=== PATIENT | female | born 1955 | race Caucasian/White ===

== ENCOUNTER 2017-12-05 18:27 | Emergency (ER) | payer MEDICARE ==
[2017-12-05 18:53] VITALS: O2SAT 98
[2017-12-05] MEDS ORDERED: DUONEB 0.5-3 MG/3 ml Neb IH ONE ×2 (19:19→19:26)
[2017-12-05] MEDS ORDERED: DELTASONE 20 MG PO ONE (19:20)
[2017-12-05] MEDS ORDERED: DELTASONE 20 MG ONE (19:25)
[2017-12-05] MEDS ORDERED: Zithromax 250 MG TABLET PO ONE (19:28)
[2017-12-05 19:33] VITALS: BP 125/46; PULSE 78
--- NOTE | 2017-12-05 19:42 | ERPHSYRPT ---
- History of Present Illness Time Seen by Provider: 12/05/17 19:01 Source: patient Exam Limitations: no limitations Patient Subjective Stated Complaint: c/o cough x 8 weeks. Had recent dx of flu and cough since. no fevers per patient. Triage Nursing Assessment: lungs CTA bilat, no congestion, dry cough, no fevers Physician History: 62 y/o female with history of COPD comes to the ER with complaints of cough, congestion, wheezing and shortness of breath for the past 6 weeks. Pt has not used any medications over the counter. No fever, chills, chest pain, sinus congestion, sore throat or muscle aches. Pt believes that she initially had the flu a few weeks ago. Timing/Duration: week(s) Cough Quality/Degree: moderate Possible Cause: no prior episodes Modifying Factors: Improves With: nothing Associated Symptoms: shortness of breath, No fever, No chills International travel in last 2 weeks: No Allergies/Adverse Reactions: No Known Drug Allergies Allergy (Unverified 12/05/17 18:53) Home Medications: Levothyroxine Sodium 100 Mcg [Synthroid 100 Mcg] 1 tab PO DAILY 12/05/17 [ History] Hx Tetanus, Diphtheria Vaccination/Date Given: Yes Hx Influenza Vaccination/Date Given: (dx flu about 8 weeks ago) Immunizations Up to Date: Yes - Review of Systems Constitutional: No Fever, No Chills Eyes: No Symptoms Ears, Nose, & Throat: No Symptoms Respiratory: Cough, Dyspnea, Dyspnea on Exertion (BLACK), Wheezing Cardiac: No Chest Pain, No Edema, No Syncope Abdominal/Gastrointestinal: No Abdominal Pain, No Nausea, No Vomiting, No Diarrhea Genitourinary Symptoms: No Dysuria Musculoskeletal: No Back Pain, No Neck Pain Skin: No Rash Neurological: No Dizziness, No Focal Weakness, No Sensory Changes Psychological: No Symptoms Endocrine: No Symptoms All Other Systems: Reviewed and Negative - Past Medical History Neurological History: No Pertinent History ENT History: No Pertinent History Cardiac History: No Pertinent History Respiratory History: COPD Endocrine Medical History: Hypothyroidism Musculoskeletal History: No Pertinent History GI Medical History: No Pertinent History History: No Pertinent History Psycho-Social History: Depression Female Reproductive Disorders: No Pertinent History - Past Surgical History Past Surgical History: No Neuro Surgical History: No Pertinent History Cardiac: No Pertinent History Respiratory: No Pertinent History Gastrointestinal: No Pertinent History Genitourinary: No Pertinent History Musculoskeletal: No Pertinent History Female Surgical History: No Pertinent History - Social History Smoking Status: Current every day smoker Drug Use: none - Female History Hx Last Menstrual Period: postmenopausal Hx Now: No - Nursing Vital Signs Nursing Vital Signs: Initial Vital Signs Temperature 97.6 F 12/05/17 18:46 Pulse Rate 84 12/05/17 18:46 Respiratory Rate 20 12/05/17 18:46 Blood Pressure 138/68 12/05/17 18:46 O2 Sat by Pulse Oximetry 98 12/05/17 18:46 Pain Scale Pain Intensity 0 - Physical Exam General Appearance: no apparent distress, alert Eye Exam: PERRL/EOMI, eyes nml inspection Ears, Nose, Throat Exam: normal ENT inspection, TMs normal, pharynx normal, moist mucous membranes Neck Exam: normal inspection, non-tender, supple, full range of motion Respiratory Exam: wheezing, No chest tenderness, No respiratory distress Cardiovascular Exam: regular rate/rhythm, normal heart sounds Gastrointestinal/Abdomen Exam: soft, No tenderness Back Exam: normal inspection, No CVA tenderness, No vertebral tenderness Extremity Exam: normal inspection, normal range of motion Neurologic Exam: alert, oriented x 3, cooperative, normal mood/affect, sensation nml, No motor deficits Skin Exam: normal color, warm, dry, No rash Lymphatic Exam: No adenopathy SpO2: 98 Oxygen Delivery: Room Air - Course Nursing assessment & vital signs reviewed: Yes Ordered Tests: Active Orders 24 hr Category Date Time Status CHEST 2 VIEWS (PA AND LAT) Stat Exams 12/05/17 18:55 Taken Respiratory Nebulizer STAT RT 12/05/17 19:20 Completed Medication Summary Discontinued Medications Generic Name Dose Route Start Last Admin Trade Name Bartq PRN Reason Stop Dose Admin Albuterol/Ipratropium 3 ml 12/05/17 19:19 12/05/17 19:44 Duoneb 0.5-3 Mg/3 Ml Neb IH 12/05/17 19:20 3 ml STAT ONE Administration Albuterol/Ipratropium Confirm 12/05/17 19:26 Duoneb 0.5-3 Mg/3 Ml Neb Administered 12/05/17 19:27 Dose 3 ml IH .STK-MED ONE Azithromycin 500 mg 12/05/17 19:28 Zithromax 250 Mg Tablet PO 12/05/17 19:29 STAT ONE Prednisone 40 mg 12/05/17 19:20 12/05/17 19:26 Deltasone 20 Mg PO 12/05/17 19:21 40 mg STAT ONE Administration Prednisone Confirm 12/05/17 19:25 Deltasone 20 Mg Administered 12/05/17 19:26 Dose 40 mg .ROUTE .STK-MED ONE - Progress Progress: improved Air Movement: good Progress Note: 12/05/17 19:53 The patient feels better after receiving duoneb, prednisone and azithromycin. The CXR is within normal limits. The patient will be d/c home on azithromycin, ventolin, prednisone and tessalon perles for bronchitis. - Departure Time of Disposition: 19:54 Departure Disposition: Home Clinical Impression: Bronchitis Condition: Stable Critical Care Time: No Referrals: SERGE KAUFMAN [Primary Care Provider] - Instructions: Acute Bronchitis Additional Instructions: Return to the ER if you should have worsening cough, congestion, wheezing, shortness of breath, fever or chills. Finish the antibiotics until completion. Prescriptions: Albuterol Sulfate [Ventolin Hfa] 8 gm IH QID PRN #1 [id number] PRN Reason: Shortness Of Breath/Wheezing Azithromycin 250 mg [Zithromax 250 MG TABLET] 250 mg PO DAILY #4 tablet Benzonatate [Tessalon Perle] 100 mg PO QID PRN #20 capsule PRN Reason: Cough Prednisone 20 mg [Deltasone 20 mg] 20 mg PO DAILY #7 tablet
[2017-12-05] MEDS ORDERED: Zithromax 250 MG TABLET ONE (20:06)
--- NOTE | 2017-12-06 08:32 | XRAY ---
Indication: Cough. COPD. Comparison: None PA/lateral chest hyperinflated and clear. Heart and mediastinal structures within normal limits. Bony thorax intact with mild degenerative changes. Impression: Nonacute hyperinflated chest.
== END 2017-12-05 20:14 | disposition home or self-care (01) ==
LOC: ED 18:27
DX: J40 Bronchitis, not specified as acute or chronic (principal); Z87.09 Personal history of other diseases of the respiratory system
CPT/HCPCS: 71046; 94640; 99283; A9270-GY

== ENCOUNTER 2018-01-12 15:36 | Emergency (ER) | payer MEDICARE ==
[2018-01-12 15:47] VITALS: BP 151/99; PULSE 83; O2SAT 96
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
== END 2018-01-12 16:03 | disposition home or self-care (01) ==
LOC: ED 15:36
DX: M62.830 Muscle spasm of back (principal); X50.0XXA Overexertion from strenuous movement or load, initial encounter; Y93.89 Activity, other specified; J44.9 Chronic obstructive pulmonary disease, unspecified; E03.9 Hypothyroidism, unspecified; F32.9 Major depressive disorder, single episode, unspecified; F17.200 Nicotine dependence, unspecified, uncomplicated; Z79.899 Other long term (current) drug therapy
CPT/HCPCS: 99281; 99282

== ENCOUNTER 2018-09-08 04:23 | Emergency (ER) | payer MEDICARE ==
[2018-09-08 04:34] VITALS: O2SAT 99
--- NOTE | 2018-09-08 04:53 | ERPHSYRPT ---
- History of Present Illness Time Seen by Provider: 09/08/18 04:48 Source: patient Exam Limitations: no limitations Patient Subjective Stated Complaint: Ear pain to right ear. Triage Nursing Assessment: Patient ambulated back to ED and transferred self to bed. Patient A+O x 3. Patient complains of right ear pain for 4 days. This nurse was uanble to assess ear due to patient in so much pain. Patient states she went to urgent care on Sunday because she couldn't hear out of [place] ear. Patient stated her ears were flushed and she has had had trouble and pain since. Pain 06/21 to right ear. Physician History: Ear pain to right ear.for 3 days Timing/Duration: gradual onset Severity: moderate ENT Location: ear (R) Associated Symptoms: denies symptoms Allergies/Adverse Reactions: No Known Drug Allergies Allergy (Verified 09/08/18 04:34) Home Medications: Levothyroxine Sodium 100 Mcg [Synthroid 100 Mcg] 1 tab PO DAILY 12/05/17 [ History] Hx Tetanus, Diphtheria Vaccination/Date Given: Yes Hx Influenza Vaccination/Date Given: No Hx Pneumococcal Vaccination/Date Given: No Immunizations Up to Date: Yes - Review of Systems Constitutional: No Symptoms Eyes: No Symptoms Ears, Nose, & Throat: Ear Pain Respiratory: No Symptoms Cardiac: No Symptoms Abdominal/Gastrointestinal: No Symptoms Genitourinary Symptoms: No Symptoms Musculoskeletal: No Symptoms - Past Medical History Neurological History: No Pertinent History ENT History: No Pertinent History Cardiac History: No Pertinent History Respiratory History: COPD Endocrine Medical History: Hypothyroidism Musculoskeletal History: No Pertinent History GI Medical History: No Pertinent History History: No Pertinent History Psycho-Social History: Depression Female Reproductive Disorders: No Pertinent History - Past Surgical History Past Surgical History: Yes Neuro Surgical History: No Pertinent History Cardiac: No Pertinent History Respiratory: No Pertinent History Gastrointestinal: No Pertinent History Genitourinary: No Pertinent History Musculoskeletal: Orthopedic Surgery Female Surgical History: No Pertinent History Other Surgical History: foot surgery - Social History Smoking Status: Current every day smoker How long have you smoked: 45 years Exposure to second hand smoke: Yes Drug Use: none Patient Lives Alone: No - Female History Hx Last Menstrual Period: Menopausal Hx Now: No - Nursing Vital Signs Nursing Vital Signs: Initial Vital Signs Temperature 97.6 F 09/08/18 04:27 Pulse Rate 77 09/08/18 04:27 Respiratory Rate 18 09/08/18 04:27 Blood Pressure 150/86 09/08/18 04:27 O2 Sat by Pulse Oximetry 99 09/08/18 04:27 Pain Scale Pain Intensity 8 - Physical Exam General Appearance: no apparent distress Eye Exam: bilateral eye: normal inspection Ear Exam: right ear: erythema, swelling, tenderness, TM dull Nasal Exam: normal inspection Throat Exam: normal Neck Exam: normal inspection Cardiovascular/Respiratory Exam: chest non-tender SpO2: 99 Oxygen Delivery: Room Air - Course Nursing assessment & vital signs reviewed: Yes - Progress Progress: unchanged Counseled pt/family regarding: diagnosis, need for follow-up - Departure Time of Disposition: 04:52 Departure Disposition: Home Clinical Impression: Otitis externa Qualifiers: Otitis externa type: unspecified type Chronicity: acute Laterality: right Qualified Code(s): H60.501 - Unspecified acute noninfective otitis externa, right ear Otitis media Qualifiers: Otitis media type: suppurative Chronicity: acute Laterality: right Recurrence: not specified as recurrent Spontaneous tympanic membrane rupture: without spontaneous rupture Qualified Code(s): H66.001 - Acute suppurative otitis media without spontaneous rupture of ear drum, right ear Condition: Stable Critical Care Time: No Referrals: SERGE KAUFMAN [Primary Care Provider] - Instructions: Ear Infections (Otitis Media) (DC) Additional Instructions: EARACHE 1. If antibiotics are prescribed, take them as directed until gone. 2. Decongestants may be useful. 3. Avoid inserting objects into the ear, such as Q-tips. 4. Acetaminophen or Ibuprofen as directed may help reduce any temperature and help with any associated pain. 5. Contact your child's family physician if there is no improvement in the child's condition within 48 hours. Prescriptions: Amoxicillin 500 mg Cap [Amoxil 500 mg] 500 mg PO TID #30 capsule
[2018-09-08] MEDS ORDERED: CORTISPORIN EAR DROPS 10 ML SUSPENSION OT ONE (05:19)
[2018-09-08 05:31] VITALS: BP 121/80; PULSE 64
[2018-09-08] MEDS ORDERED: CORTISPORIN EAR DROPS 10 ML SUSPENSION OT SCH (10:00)
== END 2018-09-08 05:34 | disposition home or self-care (01) ==
LOC: ED 04:23
DX: H60.501 Unspecified acute noninfective otitis externa, right ear (principal); H66.001 Acute suppurative otitis media without spontaneous rupture of ear drum, right ear; E03.9 Hypothyroidism, unspecified; Z79.899 Other long term (current) drug therapy
CPT/HCPCS: 99283; A9270-GY

== ENCOUNTER 2018-11-10 04:11 | Inpatient (IN) | payer MEDICARE ==
[2018-11-10] MEDS ORDERED: DUONEB 0.5-3 MG/3 ml Neb IH ONE ×3 (04:36→04:48)
[2018-11-10] MEDS ORDERED: Sodium Chloride 0.9% 1000 ML 1,000 ML IV STA ×2 (04:48→06:25)
[2018-11-10] MEDS ORDERED: solu-MEDROL 125 MG IV ONE (04:48)
--- NOTE | 2018-11-10 04:48 | ERPHSYRPT ---
- History of Present Illness Source: patient, family Exam Limitations: clinical condition Patient Subjective Stated Complaint: pt is alert and oriented. pt is ambulatory with a steady gait. pt states that she had a fever on the communication engineer of the and began having a cough. pt stated that tonight she has gotten very SOB and feels as if she can't breathe. pt appears SOB. pt came in at 85% on RA, pt placed on 2L NC and is now at 94%. pt lung sounds coarse but clear a-p bilat throughtout. pt does have a nonproductive cough. denies chest pain. pt states she has rib pain upon coughing. Triage Nursing Assessment: see above Timing/Duration: day(s) (2) Severity of Dyspnea-Max: moderate Severity of Dyspnea-Current: moderate Possible Cause: occasional episodes Modifying Factors: Improves With: coughing, exertion, lying down Associated Symptoms: cough, fever Hx Tetanus, Diphtheria Vaccination/Date Given: Yes Hx Influenza Vaccination/Date Given: No Hx Pneumococcal Vaccination/Date Given: No <MICHELLE HDZ - Last Filed: 11/10/18 06:56> <DEEPAK DUNNE - Last Filed: 11/10/18 08:55> - History of Present Illness Time Seen by Provider: 11/10/18 04:30 Physician History: 63 y/o white female with h/o copd, recurrent pneumonia, anxiety, hypothyroid, hypercholesterolemia presents with approx 2 day h/o worsening cough, fever and soa. pt arrives with room air oxyenation of 85%. (MICHELLE HDZ) Allergies/Adverse Reactions: No Known Drug Allergies Allergy (Verified 09/08/18 04:34) Home Medications: Levothyroxine Sodium 100 Mcg [Synthroid 100 Mcg] 1 tab PO DAILY 12/05/17 [ History] Atorvastatin Calcium [Lipitor] 80 mg PO DAILY 11/10/18 [History] Metformin HCl 500 mg [Glucophage 500 MG] 500 mg PO DAILY 11/10/18 [History ] clonazePAM [Klonopin] 0.5 mg PO DAILY 11/10/18 [History] - Review of Systems Constitutional: Fever Eyes: No Symptoms, No Discharge, No Eye Pain Ears, Nose, & Throat: No Symptoms, No Ear Pain, No Nose Congestion, No Sinus Drainage, No Throat Pain, No Painful Swallowing Respiratory: Cough, Dyspnea on Exertion (BLACK), No Stridor, No Wheezing Cardiac: No Symptoms, No Chest Pain, No Palpitations, No Syncope Abdominal/Gastrointestinal: No Symptoms, No Abdominal Pain, No Nausea, No Vomiting, No Diarrhea Genitourinary Symptoms: No Symptoms, No Dysuria, No Frequency, No Hematuria Musculoskeletal: No Symptoms, No Back Pain, No Neck Pain Skin: No Symptoms Neurological: No Symptoms, No Headache Psychological: No Symptoms Endocrine: No Symptoms Hematologic/Lymphatic: No Symptoms Immunological/Allergic: No Symptoms All Other Systems: Reviewed and Negative <MICHELLE HDZ - Last Filed: 11/10/18 06:56> - Past Medical History Neurological History: No Pertinent History ENT History: No Pertinent History Cardiac History: No Pertinent History Respiratory History: COPD Endocrine Medical History: Hypothyroidism Musculoskeletal History: No Pertinent History GI Medical History: No Pertinent History History: No Pertinent History Psycho-Social History: Depression Female Reproductive Disorders: No Pertinent History - Past Surgical History Past Surgical History: Yes Neuro Surgical History: No Pertinent History Cardiac: No Pertinent History Respiratory: No Pertinent History Gastrointestinal: No Pertinent History Genitourinary: No Pertinent History Musculoskeletal: Orthopedic Surgery Female Surgical History: No Pertinent History Other Surgical History: foot surgery - Social History Smoking Status: Current every day smoker How long have you smoked: 40 years Exposure to second hand smoke: Yes Drug Use: none Patient Lives Alone: No - Female History Hx Now: No <MICHELLE HDZ - Last Filed: 11/10/18 06:56> - Physical Exam General Appearance: mild distress, alert, anxiety Eye Exam: PERRL/EOMI, eyes nml inspection Ears, Nose, Throat Exam: hearing grossly normal Neck Exam: normal inspection, non-tender, supple, full range of motion Respiratory Exam: normal breath sounds, respiratory distress (mild), airway intact, diminished breath sounds (bilat), No chest tenderness, No accessory muscle use, No rhonchi, No wheezing, No stridor Cardiovascular/Chest Exam: tachycardia Abdominal/Gastrointestinal Exam: soft, normal bowel sounds, No tenderness, No guarding, No rebound Rectal Exam: not done Extremity Exam: non-tender, normal range of motion, normal inspection Neurologic Exam: alert, oriented x 3, cooperative, 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 Skin Exam: normal color, warm, dry Lymphatic Exam: No adenopathy SpO2 Interpretation: hypoxic SpO2: 94 Oxygen Delivery: Room Air <MICHELLE HDZ - Last Filed: 11/10/18 06:56> <DEEPAK DUNNE - Last Filed: 11/10/18 08:55> - Nursing Vital Signs Nursing Vital Signs: Initial Vital Signs Temperature 100.9 F 11/10/18 04:20 Pulse Rate 109 H 11/10/18 04:20 Respiratory Rate 24 11/10/18 04:20 Blood Pressure 140/94 11/10/18 04:20 O2 Sat by Pulse Oximetry 85 L 11/10/18 04:20 Pain Scale Pain Intensity 0 - Course Nursing assessment & vital signs reviewed: Yes EKG Interpreted by Me: RATE (105), Sinus Tach, NORMAL AXIS, Non-specific ST Changes, Other (no comparison) <MICHELLE HDZ - Last Filed: 11/10/18 06:56> - Radiology Exams Chest X-ray Interpretation: Interpreted by me, Pneumonia (new retrocardiac opacity in LLL, comp 2V chest 12/05/17.) <DEEPAK DUNNE - Last Filed: 11/10/18 08:55> Ordered Tests: Active Orders 24 hr Category Date Time Status Conference Planning Manager STAT Care 11/10/18 04:49 Active EKG-ER Only STAT Care 11/10/18 04:48 Active IV Insertion STAT Care 11/10/18 04:48 Active Oxygen-ED Only NASAL CANNULA 2 lpm Care 11/10/18 04:48 Active CHEST 1 VIEW (PORTABLE) Stat Exams 11/10/18 04:48 Taken BLOOD CULTURE Stat Lab 11/10/18 05:05 Received BUN [BLOOD UREA NITROGEN] Stat Lab 11/10/18 07:50 Completed CBC W DIFF Stat Lab 11/10/18 04:57 Completed CMP Stat Lab 11/10/18 04:57 Completed CREATININE SERUM Stat Lab 11/10/18 07:50 Completed D-DIMER QUANTITATION Stat Lab 11/10/18 04:57 Completed Lactic Acid Stat Lab 11/10/18 04:40 Completed NT PRO BNP Stat Lab 11/10/18 04:57 Completed PROTIME WITH INR Stat Lab 11/10/18 04:57 Completed TROPONIN Q3H Lab 11/10/18 04:57 Completed TROPONIN Q3H Lab 11/10/18 07:50 Received TROPONIN Q3H Lab 11/10/18 11:00 Ordered TROPONIN Q3H Lab 11/10/18 14:00 Ordered TROPONIN Q3H Lab 11/10/18 17:00 Ordered Peak Expiratory Flow Rate ONCE RT 11/10/18 04:48 Active Respiratory Therapy Assessment DAILY RT 11/10/18 04:49 Active Medication Summary Discontinued Medications Generic Name Dose Route Start Last Admin Trade Name Freq PRN Reason Stop Dose Admin Hydrocodone Bitart/Acetaminophen 10 ml 11/10/18 05:37 11/10/18 05:56 Hydrocodone-Acetamin 2.5-108/5 Ml Solution PO 11/10/18 05:38 10 ml STAT STA Administration Hydrocodone Bitart/Acetaminophen Confirm 11/10/18 05:48 Hydrocodone-Acetamin 2.5-108/5 Ml Solution Administered 11/10/18 05:49 Dose 10 ml .ROUTE .STK-MED ONE Albuterol/Ipratropium Confirm 11/10/18 04:36 Duoneb 0.5-3 Mg/3 Ml Neb Administered 11/10/18 04:37 Dose 3 ml IH .STK-MED ONE Albuterol/Ipratropium 3 ml 11/10/18 04:40 11/10/18 04:40 Duoneb 0.5-3 Mg/3 Ml Neb IH 11/10/18 04:41 3 ml STAT ONE Administration Albuterol/Ipratropium 3 ml 11/10/18 04:48 Duoneb 0.5-3 Mg/3 Ml Neb IH 11/10/18 04:49 STAT ONE Sodium Chloride 1,000 mls @ 999 mls/hr 11/10/18 04:48 11/10/18 06:18 Sodium Chloride 0.9% 1000 Ml IV 11/10/18 05:48 Infused .Q1H1M STA Infusion Sodium Chloride Confirm 11/10/18 04:59 Sodium Chloride 0.9% 1000 Ml Administered 11/10/18 05:00 Dose 1,000 mls @ ud .ROUTE .STK-MED ONE Ceftriaxone Sodium/Dextrose 1 g in 50 mls @ 100 mls/hr 11/10/18 05:28 06:29 Rocephin 1 Gm-D5w 50 Ml Bag IV 11/10/18 05:57 Infused STAT STA Infusion Ceftriaxone Sodium/Dextrose Confirm 11/10/18 05:48 Rocephin 1 Gm-D5w 50 Ml Bag Administered 11/10/18 05:49 Dose 1 g in 50 mls @ ud IV .STK-MED ONE Sodium Chloride 1,000 mls @ 999 mls/hr 11/10/18 06:25 11/10/18 07:30 Sodium Chloride 0.9% 1000 Ml IV 11/10/18 07:25 Infused .Q1H1M STA Infusion Sodium Chloride Confirm 11/10/18 06:26 Sodium Chloride 0.9% 1000 Ml Administered 11/10/18 06:27 Dose 1,000 mls @ ud .ROUTE .STK-MED ONE Methylprednisolone Sodium Succinate 125 mg 11/10/18 04:48 11/10/18 05:09 Solu-Medrol 125 Mg IV 11/10/18 04:49 125 mg STAT ONE Administration Methylprednisolone Sodium Succinate Confirm 11/10/18 04:59 Solu-Medrol 125 Mg Administered 11/10/18 05:00 Dose 125 mg .ROUTE .STK-MED ONE Oseltamivir Phosphate 75 mg 11/10/18 06:03 11/10/18 06:24 Tamiflu 75mg Capsule PO 11/10/18 06:04 75 mg STAT ONE Administration Oseltamivir Phosphate Confirm 11/10/18 06:21 Tamiflu 75mg Capsule Administered 11/10/18 06:22 Dose 75 mg PO .STK-MED ONE Lab/Rad Data: Laboratory Result Diagrams 11/10/18 04:57 11/10/18 07:50 Laboratory Results 11/10/18 11/10/18 11/10/18 Range/Units 07:50 07:50 05:05 WBC (4.0-10.5) K/mm3 RBC (4.1-5.4) M/mm3 Hgb (12.0-16.0) gm/dl Hct (35-47) % MCV (78-100) fl MCH (26-32) pg MCHC (32-36) g/dl RDW (11.5-14.0) % Plt Count (150-450) K/mm3 MPV (6-9.5) fl Gran % (36.0-66.0) % Eos # (Auto) (0-0.5) Absolute Lymphs (auto) (1.0-4.6) Absolute Monos (auto) (0.0-1.3) Lymphocytes % (24.0-44.0) % Monocytes % (0.0-12.0) % Eosinophils % (0.00-5.0) % Basophils % (0.0-0.4) % Absolute Granulocytes (1.4-6.9) Basophils # (0-0.4) PT (9.95-12.35) SECONDS INR (0.8-3.0) D-Dimer (215-500) ng/mL Sodium (137-145) mmol/L Potassium (3.5-5.1) mmol/L Chloride (98-107) mmol/L Carbon Dioxide (22-30) mmol/L Anion Gap (5-15) MEQ/L BUN 26 H (7-17) mg/dL Creatinine 1.23 H (0.52-1.04) mg/dL Estimated GFR 46.7 ML/MIN Glucose (74-106) mg/dL Lactic Acid (0.4-2.0) Calcium (8.4-10.2) mg/dL Total Bilirubin (0.2-1.3) mg/dL AST (14-36) U/L ALT (0-35) U/L Alkaline Phosphatase (38-126) U/L Troponin I < 0.012 (0.000-0.034) ng/mL NT-Pro-B Natriuret Pep (0-900) pg/mL Serum Total Protein (6.3-8.2) g/dL Albumin (3.5-5.0) g/dL Influenza Type A Ag POSITIVE (NEGATIVE) Influenza Type B Ag NEGATIVE (NEGATIVE) RSV (PCR) NEGATIVE (Negative) 11/10/18 11/10/18 11/10/18 Range/Units 04:57 04:57 04:57 WBC (4.0-10.5) K/mm3 RBC (4.1-5.4) M/mm3 Hgb (12.0-16.0) gm/dl Hct (35-47) % MCV (78-100) fl MCH (26-32) pg MCHC (32-36) g/dl RDW (11.5-14.0) % Plt Count (150-450) K/mm3 MPV (6-9.5) fl Gran % (36.0-66.0) % Eos # (Auto) (0-0.5) Absolute Lymphs (auto) (1.0-4.6) Absolute Monos (auto) (0.0-1.3) Lymphocytes % (24.0-44.0) % Monocytes % (0.0-12.0) % Eosinophils % (0.00-5.0) % Basophils % (0.0-0.4) % Absolute Granulocytes (1.4-6.9) Basophils # (0-0.4) PT 12.7 H (9.95-12.35) SECONDS INR 1.09 (0.8-3.0) D-Dimer 1016 H* (215-500) ng/mL Sodium 142 (137-145) mmol/L Potassium 3.7 (3.5-5.1) mmol/L Chloride 106 (98-107) mmol/L Carbon Dioxide 22 (22-30) mmol/L Anion Gap 18.3 H (5-15) MEQ/L BUN 31 H (7-17) mg/dL Creatinine 1.53 H (0.52-1.04) mg/dL Estimated GFR 36.3 ML/MIN Glucose 125 H (74-106) mg/dL Lactic Acid (0.4-2.0) Calcium 9.0 (8.4-10.2) mg/dL Total Bilirubin 0.70 (0.2-1.3) mg/dL AST 58 H (14-36) U/L ALT 81 H (0-35) U/L Alkaline Phosphatase 222 H (38-126) U/L Troponin I < 0.012 (0.000-0.034) ng/mL NT-Pro-B Natriuret Pep 323 (0-900) pg/mL Serum Total Protein 7.6 (6.3-8.2) g/dL Albumin 4.3 (3.5-5.0) g/dL Influenza Type A Ag (NEGATIVE) Influenza Type B Ag (NEGATIVE) RSV (PCR) (Negative) 11/10/18 11/10/18 Range/Units 04:57 04:40 WBC 6.8 (4.0-10.5) K/mm3 RBC 4.82 (4.1-5.4) M/mm3 Hgb 15.4 (12.0-16.0) gm/dl Hct 46.4 (35-47) % MCV 96.3 (78-100) fl MCH 32.0 (26-32) pg MCHC 33.2 (32-36) g/dl RDW 14.4 H (11.5-14.0) % Plt Count 152 (150-450) K/mm3 MPV 11.4 H (6-9.5) fl Gran % 76.2 H (36.0-66.0) % Eos # (Auto) 0.02 (0-0.5) Absolute Lymphs (auto) 0.77 L (1.0-4.6) Absolute Monos (auto) 0.79 (0.0-1.3) Lymphocytes % 11.4 L (24.0-44.0) % Monocytes % 11.7 (0.0-12.0) % Eosinophils % 0.3 (0.00-5.0) % Basophils % 0.4 (0.0-0.4) % Absolute Granulocytes 5.15 (1.4-6.9) Basophils # 0.03 (0-0.4) PT (9.95-12.35) SECONDS INR (0.8-3.0) D-Dimer (215-500) ng/mL Sodium (137-145) mmol/L Potassium (3.5-5.1) mmol/L Chloride (98-107) mmol/L Carbon Dioxide (22-30) mmol/L Anion Gap (5-15) MEQ/L BUN (7-17) mg/dL Creatinine (0.52-1.04) mg/dL Estimated GFR ML/MIN Glucose (74-106) mg/dL Lactic Acid 0.9 (0.4-2.0) Calcium (8.4-10.2) mg/dL Total Bilirubin (0.2-1.3) mg/dL AST (14-36) U/L ALT (0-35) U/L Alkaline Phosphatase (38-126) U/L Troponin I (0.000-0.034) ng/mL NT-Pro-B Natriuret Pep (0-900) pg/mL Serum Total Protein (6.3-8.2) g/dL Albumin (3.5-5.0) g/dL Influenza Type A Ag (NEGATIVE) Influenza Type B Ag (NEGATIVE) RSV (PCR) (Negative) - Progress Progress: improved, re-examined Air Movement: good Blood Culture(s) Obtained: Yes Antibiotics given: Yes Counseled pt/family regarding: lab results, diagnosis, rad results <MICHELLE HDZ - Last Filed: 11/10/18 06:56> - Progress Air Movement: fair Discussed with Dr.: Lima Will see patient in: hospital (full admit) <DEEPAK DUNNE - Last Filed: 11/10/18 08:55> - Progress Progress Note: 11/10/18 05:27 cxr-bibasilar atelectasis vs early infiltrate. 11/10/18 05:38 pt re examined. pt has improvement in air flow. pt states she is breathing better 11/10/18 06:29 pt is feeling better. her d dimer was elevated. cmp reveals bun/cr elevated with low gfr. ct chest with contrast cannot be performed at this moment. in june 2018 pts bun/cr normal. pt has no renal dz. pt states she has not been eating or drinking well in last few days. i will attempt to rehydrate pt and repeat bun/cr and gfr. if normal, then proceed with ct chest with contrast. if still abnormal, pt may need observation with continued rehydration. will d/w dr. dunne upon his arrival at shift change. 11/10/18 06:56 dr. dunne assumes care of this pt at shift change. he will follow up on pending tests and give final disposition (MICHELLE HDZ) 11/10/18 07:23 Pt care discussed and care accepted from Dr Hdz at 07:00. (DEEPAK DUNNE) - Departure Departure Disposition: Home Critical Care Time: No <MICHELLE HDZ - Last Filed: 11/10/18 06:56> - Departure Time of Disposition: 08:45 Departure Disposition: In-patient Admission (per Dr Amato) <DEEPAK DUNNE - Last Filed: 11/10/18 08:55> - Departure Clinical Impression: COPD exacerbation, Bronchitis Condition: Stable Referrals: SERGE KAUFMAN [Primary Care Provider] - Instructions: Chronic Obstructive Pulmonary Disease Additional Instructions: drink plenty of fluids. follow up with primary doctor for persistent symptoms. return to ED if symptoms worsen. Prescriptions: Albuterol 8 gm Mdi Hfa [Ventolin Hfa MDI] 8 gm IH Q4H #1 hfa.aer.ad Azithromycin 250 mg [Zithromax 250 MG TABLET] 250 mg PO ZPACK #6 tablet Hydrocodone Bit/Acetaminophen [Hydrocodone-Acetaminophen Soln] 10 ml PO Q6H # 120 ml Oseltamivir 75 mg [Tamiflu 75MG Capsule] 75 mg PO BID #10 cap Prednisone 10 mg [Deltasone 10 mg] 10 mg PO TID #12 tablet
[2018-11-10] MEDS ORDERED: Sodium Chloride 0.9% 1000 ML 1,000 ML ONE ×2 (04:59→06:26)
[2018-11-10] MEDS ORDERED: solu-MEDROL 125 MG ONE (04:59)
[2018-11-10 05:03] LABS: BASOPHIL % 0.4 % (0.0-0.4); Basophil (Absolute #) 0.03 (0-0.4); Eosinophil % 0.3 % (0.00-5.0); Eosinophil (Absolute #) 0.02 (0-0.5); Granulocyte Absolute (ANC) 5.15 (1.4-6.9); Granulocytes % 76.2 % (36.0-66.0); Hematocrit 46.4 % (35-47); Hemoglobin 15.4 gm/dl (12.0-16.0); Lymphocyte (Absolute #) 0.77 (1.0-4.6); Lymphocytes % 11.4 % (24.0-44.0); Mean Cell Volume 96.3 fl (78-100); Mean Corpuscular Hgb Concent. 33.2 g/dl (32-36); Mean Platelet Volume 11.4 fl (6-9.5); Monocyte (Absolute #) 0.79 (0.0-1.3); Monocytes % 11.7 % (0.0-12.0); Platelet Count 152 K/mm3 (150-450); Red Blood Count 4.82 M/mm3 (4.1-5.4); Red Cell Distribution Width 14.4 % (11.5-14.0); White Blood Count 6.8 K/mm3 (4.0-10.5)
[2018-11-10 05:09] LABS: INR 1.09 (0.8-3.0)
[2018-11-10] MEDS ORDERED: ROCEPHIN 1 Gm-D5w 50 ml Bag** 1 G/50 ML IVPB IV STA (05:28)
[2018-11-10] MEDS ORDERED: HYDROCODONE-ACETAMIN 2.5-108/5 ML SOLUTION PO STA (05:37)
[2018-11-10] MEDS ORDERED: HYDROCODONE-ACETAMIN 2.5-108/5 ML SOLUTION ONE (05:48)
[2018-11-10] MEDS ORDERED: ROCEPHIN 1 Gm-D5w 50 ml Bag** 1 G/50 ML IVPB IV ONE (05:48)
[2018-11-10 05:51] LABS: INFLUENZA A POSITIVE (NEGATIVE); INFLUENZA B NEGATIVE (NEGATIVE); RESPIRATORY SYNCTIAL VIRUS NEGATIVE (Negative)
[2018-11-10 06:03] LABS: ALBUMIN 4.3 g/dL (3.5-5.0); ANION GAP 18.3 MEQ/L (5-15); BILIRUBIN,TOTAL 0.7 mg/dL (0.2-1.3); Creatinine 1 1.53 mg/dL (0.52-1.04); Potassium 3.7 mmol/L (3.5-5.1); Total Protein 7.6 g/dL (6.3-8.2)
[2018-11-10] MEDS ORDERED: Tamiflu 75MG Capsule PO ONE ×2 (06:03→06:21)
[2018-11-10 08:04] LABS: Creatinine 1 1.23 mg/dL (0.52-1.04)
[2018-11-10] MEDS ORDERED: Sodium Chloride 0.9% 1000 ML 1,000 ML IV SCH (09:30)
[2018-11-10] MEDS ORDERED: NON-FORMULARY ITEM (Atorvastatin Calcium [Lipitor] 80 MG) PO SCH (10:00)
[2018-11-10] MEDS ORDERED: PROVENTIL 2.5 MG/3 ML NEB IH SCH (11:00)
--- NOTE | 2018-11-10 11:23 | XRAY ---
Indication: Cough, congestion, fever, and short of breath. Comparison: December 05, 2017. Portable chest remains clear. Heart is not enlarged. Bony thorax intact again with mild degenerative changes. No new/acute findings. Impression: Stable nonacute chest.
[2018-11-10] MEDS: DUONEB 0.5-3 MG/3 ml Neb IH SCH ×4 (11:52→22:38)
[2018-11-10] MEDS ORDERED: solu-MEDROL 125 MG IV SCH (12:00)
[2018-11-10] MEDS: Zithromax 500 MG/ 250 ML NaCl Premix 500 MG/250 ML IVPB IV SCH (12:36)
[2018-11-10] MEDS: solu-MEDROL 125 MG IV SCH ×3 (12:36→22:59)
[2018-11-10] MEDS: Klonopin 0.5 MG PO SCH (12:36)
[2018-11-10] MEDS: SYNTHROID 100 MCG PO SCH (12:36)
[2018-11-10] MEDS: ENOXAPARIN SODIUM SQ SCH (17:14)
[2018-11-10] MEDS: Tamiflu 75MG Capsule PO SCH (21:48)
[2018-11-10] MEDS ORDERED: ZOCOR 20MG PO SCH (22:00)
[2018-11-11] MEDS ORDERED: Robitussin AC Syrup Unit Dose Cup PO PRN ×2 (01:02→06:45)
[2018-11-11] MEDS: DUONEB 0.5-3 MG/3 ml Neb IH SCH ×2 (03:18→07:20)
[2018-11-11] MEDS: solu-MEDROL 125 MG IV SCH ×2 (05:49→11:25)
[2018-11-11 06:05] LABS: Hemoglobin 12.1 gm/dl (12.0-16.0); Mean Cell Volume 96.9 fl (78-100); Mean Corpuscular Hgb Concent. 32.7 g/dl (32-36); Platelet Count 136 K/mm3 (150-450); Red Blood Count 3.82 M/mm3 (4.1-5.4); White Blood Count 10.4 K/mm3 (4.0-10.5)
[2018-11-11 06:26] LABS: ANION GAP 13.6 MEQ/L (5-15); BLOOD UREA NITROGEN 20 mg/dL (7-17); CHLORIDE 110 mmol/L (98-107); Calcium 8.2 mg/dL (8.4-10.2); Carbon Dioxide 21 mmol/L (22-30); Creatinine 1 0.74 mg/dL (0.52-1.04); Glucose 259 mg/dL (74-106); Potassium 3.1 mmol/L (3.5-5.1); SODIUM 142 mmol/L (137-145)
[2018-11-11 06:29] LABS: Mean Corpuscular Hemoglobin 31.6 pg (26-32)
--- NOTE | 2018-11-11 08:25 | HP ---
CHIEF COMPLAINT: Shortness of breath. HISTORY OF PRESENT ILLNESS: The patient is a 63 year-old white female who reports began becoming ill approximately two to three days ago. She was having shortness of breath and presented to the emergency room and was found to have an O2 saturation of 85% on room air with ambulation. She was subsequently admitted to the hospital after being diagnosed with influenza and possible pneumonia infiltrate on chest x-ray. PAST MEDICAL/SURGICAL HISTORY: Significant for hyperlipidemia, hypothyroid. HOME MEDICATIONS: Levothyroxine 100 mcg daily, atorvastatin 80 mg a day. She takes clonazepam 0.5 mg on a PRN basis. ALLERGIES: NKDA. PHYSICAL EXAMINATION: Her vital signs on admission showed temperature 100.9F, pulse 109, respiratory rate 24, blood pressure 140/94. Again, O2 saturation 85%. HEENT: Normocephalic, atraumatic. Pupils equal round reactive to light. Extraocular movements intact. Oropharynx is pink and moist. NECK: Supple without lymphadenopathy, thyromegaly or JVD. CHEST: Bilateral basilar wheezes. HEART: Regular rate and rhythm without murmurs, rubs or gallops. ABDOMEN: Soft. No palpable masses. EXTREMITIES: Without clubbing, cyanosis or edema. NEUROLOGIC: The patient is alert and oriented x3. LAB DATA AND TESTS: The patient's white blood cell count was 6,800. Her hemoglobin was 15.4, PLT count 152,000. Troponins less than 0.012. Glucose 125, BUN 31, creatinine 1.53. Electrolytes were normal. Slight elevation in her AST at 58, ALT of 81. Alkaline phosphatase 222. The patient's D-dimer was elevated at 1,[address] angiogram of the chest due to elevated creatinine. The patient's influenza swab was positive for influenza A. Lactic acid was 0.9. Her EKG showed sinus tachycardia with no acute ST or T wave changes. ASSESSMENT: A patient with influenza and has been started on Tamiflu 75 mg b.i.d. She has been placed on supplemental oxygen to keep her saturations above 90%. With the wheezing going on we are treating her with Solu-Medrol 60 mg IV every 8 hours with nebulizer treatments. She has been placed empirically in the emergency room on Rocephin and Zithromax due to possible pneumonia infiltrate on the chest x-ray. The patient's D-dimer elevation we were unable to do CT angiogram of the chest. We placed her on Lovenox subcu daily. Hopefully her BUN and creatinine are down by tomorrow so she can get a CT of the chest if her primary care provider believes it is necessary but with the holidays it may be difficult to get a VQ scan done at our facility.
[2018-11-11] MEDS ORDERED: Sodium Chloride 0.9% 500 ML 500 ML IV ONE (08:54)
[2018-11-11] MEDS: ENOXAPARIN SODIUM SQ SCH (09:27)
[2018-11-11] MEDS: Zithromax 500 MG/ 250 ML NaCl Premix 500 MG/250 ML IVPB IV SCH (09:27)
[2018-11-11] MEDS: Tamiflu 75MG Capsule PO SCH (09:27)
[2018-11-11] MEDS: SYNTHROID 100 MCG PO SCH (09:27)
[2018-11-11] MEDS: Klonopin 0.5 MG PO SCH (09:27)
[2018-11-11] MEDS ORDERED: ROCEPHIN 1 Gm-D5w 50 ml Bag** 1 G/50 ML IVPB IV SCH (10:00)
[2018-11-11 12:41] VITALS: BP 106/65; PULSE 83; O2SAT 95
--- NOTE | 2018-11-11 12:57 | PCM.DCORD ---
- Discharge Discharge Date: 11/11/18 Disposition: Home, Self-Care Condition: Good Prescriptions: New Prednisone 20 mg [Deltasone 20 mg] 20 mg PO UD #15 tablet Albuterol Sulfate [Proair Hfa] 2 puff IH Q4H PRN #1 hfa.aer.ad PRN Reason: Shortness Of Breath/Wheezing Oseltamivir 75 mg [Tamiflu 75MG Capsule] 75 mg PO BID #8 cap Benzonatate [Tessalon Perle] 100 mg PO QID PRN #30 capsule PRN Reason: Cough Azithromycin 250 mg [Zithromax 250 MG TABLET] 250 mg PO DAILY #3 tablet Continue Levothyroxine Sodium 100 Mcg [Synthroid 100 Mcg] 1 tab PO DAILY Atorvastatin Calcium [Lipitor] 80 mg PO DAILY clonazePAM [Klonopin] 0.5 mg PO DAILY Follow up with: SERGE KAUFMAN [Primary Care Provider] - 11/18/18 9:30 am
--- NOTE | 2018-11-13 15:30 | DS ---
DISCHARGE DIAGNOSES: 1) INFLUENZA A. 2) CHRONIC OBSTRUCTIVE PULMONARY DISEASE EXACERBATION. 3) HISTORY OF PSYCHIATRIC DISORDER. 4) HYPOTHYROIDISM. 5) ELEVATED D-DIMER. DISCHARGE PHYSICAL EXAMINATION: VITALS: Temperature current 98.1F, heart rate 83, respiratory rate 20, blood pressure 106/65. Oxygen saturation 95% on room air. GENERAL: The patient is sitting up in her chair a pleasant talkative lady in no acute distress. CVS: She has a regular rate and rhythm. No murmurs, gallops or rubs are appreciated. CHEST: Clear to auscultation bilaterally. No crackles or wheezes. ABDOMEN: Soft, nontender, nondistended with normal bowel sounds. EXTREMITIES: No clubbing, cyanosis or edema. SKIN: Warm, dry and intact. HOSPITAL COURSE: 1) INFLUENZA A: She was started on Tamiflu to finish out total of a five day course of Tamiflu 75 mg p.o. b.i.d., continue with good oral intake. The patient reports she ate her breakfast without any problems and has not had any nausea. The patient voices that she would like to go home today. She had been weaned off of oxygen last night and has not needed any oxygen overnight or this morning. She is saturating well on room air. 2) CHRONIC OBSTRUCTIVE PULMONARY DISEASE EXACERBATION: She was started on azithromycin and ceftriaxone as well as IV Solu-Medrol in the hospital as well as breathing treatments. Will discharge her with azithromycin to complete a five day course as well as the prednisone to taper and Albuterol inhaler if she needs it and she will follow up with me closely in the clinic. 3) HISTORY OF PSYCHIATRIC DISORDER: She was continued on her home medications and she reports she is seeing a psychiatrist and doing well, will continue having her follow up with the psychiatrist as an outpatient. 4) HISTORY OF HYPOTHYROIDISM: She was continued on her levothyroxine during her hospitalization. 5) ELEVATED D-DIMER: In the emergency department she was found to have an elevated D-dimer but CT scan could not be done at that time due to her creatinine being slightly elevated. It was back down to normal today. I discussed with the patient that we could do a CT to rule out a pulmonary embolism but overall she is feeling much better and would prefer not to do the CT scan. It appears that her respiratory difficulty is more from the influenza A and chronic obstructive pulmonary disease exacerbation which after appropriate treatment has improved greatly. DISCHARGE MEDICATIONS: Please see the discharge order. DISPOSITION: The patient was discharged to home in fair condition to follow up with me next week.
== END 2018-11-11 14:45 | disposition home or self-care (01) | DRG 194 ==
LOC: ED 04:11 → MED SURG 09:10
PROVIDERS: ADMIT Family Medicine; ATTEND Internal Medicine
DX: J09.X2 Influenza due to identified novel influenza A virus with other respiratory manifestations (principal); J44.1 Chronic obstructive pulmonary disease with (acute) exacerbation; F99 Mental disorder, not otherwise specified; F41.9 Anxiety disorder, unspecified; R79.89 Other specified abnormal findings of blood chemistry; E78.5 Hyperlipidemia, unspecified; E03.9 Hypothyroidism, unspecified; E78.00 Pure hypercholesterolemia, unspecified; Z79.899 Other long term (current) drug therapy
CPT/HCPCS: 36000; 36415; 71045; 80048; 80053; 82565; 83605; 83880; 84484; 84520; 85025; 85027; 85379; 85610; 87040; 87631; 93005; 93041; 94150; 94640; 94760; 94762; 96360; 96361; 96365; 96374; 99285; J0456; J0696; J1650; J2930; A9270-GY

== ENCOUNTER 2024-07-03 19:47 | Emergency (ER) | payer MEDICARE, SELFPAY ==
[2024-07-03 20:05] VITALS: TEMP 98.5
[2024-07-03] MEDS ORDERED: Zofran 4 MG/2 ML VIAL ONE (20:32)
[2024-07-03] MEDS ORDERED: SUBLIMAZE 100 MCG/2 ML ONE (20:33)
[2024-07-03] MEDS: Zofran 4 MG/2 ML VIAL IV ONE (20:36)
[2024-07-03] MEDS: SUBLIMAZE 100 MCG/2 ML IV ONE (20:38)
[2024-07-03 20:52] LABS: Absolute Neutrophil Ct (ANC) 3.97 x10^3/uL (1.56-6.13); BASOPHIL % 1.1 % (0.1-1.2); Basophil (Absolute #) 0.08 x10^3/uL (0.01-0.08); Eosinophil % 1.2 % (0.7-5.8); Eosinophil (Absolute #) 0.09 x10^3/uL (0.04-0.36); Hematocrit 43.1 % (34.1-44.9); Hemoglobin 14.5 g/dL (11.2-15.7); IMMATURE GRAN # 0.03 x10^3u/L (0.001-0.031); IMMATURE GRAN % 0.4 % (0.001-0.429); Lymphocyte (Absolute #) 2.69 x10^3/uL (1.18-3.74); Lymphocytes % 36.2 % (19.3-51.7); Mean Cell Volume 95.8 fL (79.4-94.8); Mean Corpuscular Hemoglobin 32.2 pg (25.6-32.2); Mean Corpuscular Hgb Concent. 33.6 g/dL (32.2-35.5); Mean Platelet Volume 10.7 fL (9.4-12.3); Monocyte (Absolute #) 0.57 x10^3/uL (0.24-0.86); Monocytes % 7.7 % (4.7-12.5); Neutrophil % 53.4 % (34.0-71.1); Platelet Count 181 x10^3/uL (182-369); Red Cell Distribution Width 12.5 % (11.7-14.4); White Blood Count 7.4 x10^3/uL (3.98-10.04)
--- NOTE | 2024-07-03 20:54 | ERPHSYRPT ---
- History of Present Illness Time Seen by Provider: 07/03/24 19:53 Source: patient Exam Limitations: no limitations Patient Subjective Stated Complaint: pt states her right side of her back is locking up Triage Nursing Assessment: pt ambulated into the er; pt is axo x4; c/o back pain; pt states 10/10 pain to rt side of back; good ROM to back; skin PDW; no respiratory distress present; hypertensive Physician History: 68-year-old female presented in the ER with 2 to 3 days history of right flank/back pain. Patient reports it is reproducible with movements and certain directions. Sharp shooting, moves/radiates across to the other side of the back. Denies any midline pain. Denies any fall or trauma. No urinary complaints. Last for few seconds and improves on its own without any medications. No history of back pain. Allergies/Adverse Reactions: No Known Drug Allergies Allergy (Verified 07/03/24 19:51) Home Medications: ARIPiprazole [Aripiprazole] 5 mg PO DAILY 07/03/24 [History] Citalopram Hydrobromide [Celexa] 40 mg PO DAILY 07/03/24 [History] Levothyroxine Sodium 75 Mcg [Synthroid 75 Mcg] 75 mcg PO DAILY 07/03/24 [History] Lorazepam 1 mg [Ativan 1 MG] 1 mg PO TID 07/03/24 [History] Hx Tetanus, Diphtheria Vaccination/Date Given: No Hx Influenza Vaccination/Date Given: No Hx Pneumococcal Vaccination/Date Given: No Immunizations Up to Date: No Travel Risk - International Travel Have you traveled outside of the country in past 3 weeks: No - Emerging Infectious Disease Are you exhibiting symptoms associated with any current EIDs: No - Review of Systems Constitutional: No Symptoms Eyes: No Symptoms Ears, Nose, & Throat: No Symptoms Respiratory: No Symptoms Cardiac: No Symptoms Abdominal/Gastrointestinal: No Symptoms Genitourinary Symptoms: No Symptoms Musculoskeletal: Back Pain Skin: No Symptoms Neurological: No Symptoms Psychological: No Symptoms Endocrine: No Symptoms Hematologic/Lymphatic: No Symptoms Immunological/Allergic: No Symptoms - Past Medical History Pertinent Past Medical History: Yes Neurological History: No Pertinent History ENT History: No Pertinent History Cardiac History: No Pertinent History Respiratory History: COPD Endocrine Medical History: Hypothyroidism Musculoskeletal History: No Pertinent History GI Medical History: No Pertinent History History: No Pertinent History Psycho-Social History: Depression Female Reproductive Disorders: No Pertinent History - Past Surgical History Past Surgical History: Yes Neuro Surgical History: No Pertinent History Cardiac: No Pertinent History Respiratory: No Pertinent History Gastrointestinal: No Pertinent History Genitourinary: No Pertinent History Musculoskeletal: Orthopedic Surgery Female Surgical History: No Pertinent History Other Surgical History: foot surgery - Social History Smoking Status: Current every day smoker How long have you smoked: 40 years Exposure to second hand smoke: Yes Drug Use: none Patient Lives Alone: No - Social Determinants of Health Will the patient participate in the screening: Yes Do you worry about a steady place to live?: No Do you have any problems with any of the following?: No known problems In the past 12 months,have you had to go without utilities?: No Transportation Issues: No Has anyone in your support network made you feel unsafe?: No Have you or anyone in your house had to go without enough: No - Nursing Vital Signs Nursing Vital Signs: Initial Vital Signs Temperature 98.5 F 07/03/24 19:54 Pulse Rate 64 07/03/24 19:54 Respiratory Rate 20 07/03/24 19:54 Blood Pressure 160/90 07/03/24 19:54 O2 Sat by Pulse Oximetry 97 07/03/24 19:54 Pain Scale Pain Intensity [Right Lower 10 Back] Pain Intensity 2 - Physical Exam General Appearance: no apparent distress Ears, Nose, Throat Exam: normal ENT inspection Neck Exam: normal inspection, non-tender, supple, full range of motion Respiratory Exam: normal breath sounds, lungs clear Cardiovascular Exam: regular rate/rhythm, normal heart sounds Gastrointestinal Exam: soft, normal bowel sounds, No tenderness, No guarding Back Exam: normal inspection, normal range of motion, muscle spasm, point tenderness (Right lumbar paraspinal area.), No vertebral tenderness, No decreased range of motion Extremity Exam: normal inspection, normal range of motion Neurologic Exam: alert, oriented x 3, cooperative, pneumatic tube repairer II-XII nml as tested, normal mood/affect, nml cerebellar function, nml station & gait, sensation nml, No motor deficits, No sensory deficit Skin Exam: normal color SpO2 Interpretation: normal SpO2: 97 O2 Delivery: Room Air Ordered Tests: Active Orders 24 hr Category Date Time Status ABDOMEN AND PELVIS W/0 CONTRAS [CT] Stat Exams 07/03/24 20:49 Taken CBC W DIFF Stat Lab 07/03/24 20:49 Completed CMP Stat Lab 07/03/24 20:49 Completed UA W/RFX UR CULTURE Stat Lab 07/03/24 20:35 Completed Medication Summary Discontinued Medications Generic Name Dose Route Start Last Admin Trade Name Vonda PRN Reason Stop Dose Admin Fentanyl Citrate 50 mcg 07/03/24 20:20 07/03/24 20:38 Fentanyl Citrate 100 Mcg/2 Ml* Vial IV 07/03/24 20:21 50 mcg STAT ONE Administration Fentanyl Citrate Confirm 07/03/24 20:33 Fentanyl Citrate 100 Mcg/2 Ml* Vial Administered 07/03/24 20:34 Dose 100 mcg .ROUTE .STK-MED ONE Ondansetron HCl 4 mg 07/03/24 20:20 07/03/24 20:36 Ondansetron Hcl 4 Mg/2 Ml Vial IV 07/03/24 20:21 4 mg STAT ONE Administration Ondansetron HCl Confirm 07/03/24 20:32 Ondansetron Hcl 4 Mg/2 Ml Vial Administered 07/03/24 20:33 Dose 4 mg .ROUTE .STK-MED ONE Lab/Rad Data: Laboratory Result Diagrams 07/03/24 20:49 07/03/24 20:49 Laboratory Results 07/03/24 07/03/24 07/03/24 Range/Units 20:49 20:49 20:35 WBC 7.4 (3.98-10.04) x10^3/uL RBC 4.50 (3.93-5.22) x10^6/uL Hgb 14.5 (11.2-15.7) g/dL Hct 43.1 (34.1-44.9) % MCV 95.8 H (79.4-94.8) fL MCH 32.2 (25.6-32.2) pg MCHC 33.6 (32.2-35.5) g/dL RDW 12.5 (11.7-14.4) % Plt Count 181 L (182-369) x10^3/uL MPV 10.7 (9.4-12.3) fL Gran % 53.4 (34.0-71.1) % Immature Gran % (Auto) 0.4 (0.001-0.429) % Nucleat RBC Rel Count 0.0 (0.00-0.2) % Eos # (Auto) 0.09 (0.04-0.36) x10^3/uL Immature Gran # (Auto) 0.03 (0.001-0.031) x10^3u/L Absolute Lymphs (auto) 2.69 (1.18-3.74) x10^3/uL Absolute Monos (auto) 0.57 (0.24-0.86) x10^3/uL Absolute Nucleated RBC 0.00 (0.00-0.012) x10^3u/L Lymphocytes % 36.2 (19.3-51.7) % Monocytes % 7.7 (4.7-12.5) % Eosinophils % 1.2 (0.7-5.8) % Basophils % 1.1 (0.1-1.2) % Absolute Granulocytes 3.97 (1.56-6.13) x10^3/uL Basophils # 0.08 (0.01-0.08) x10^3/uL Sodium 141 (135-145) mmol/L Potassium 3.9 (3.5-5.1) mmol/L Chloride 107 (98-107) mmol/L Carbon Dioxide 31 H (22-30) mmol/L Anion Gap 7.9 (5-15) MEQ/L BUN 22 H (7-17) mg/dL Creatinine 1.11 H (0.52-1.04) mg/dL Estimated GFR 53.8 ML/MIN Glucose 111 H (74-106) mg/dL Calcium 8.9 (8.4-10.2) mg/dL Total Bilirubin 0.30 (0.2-1.3) mg/dL AST 21 (14-36) U/L ALT 15 (0-35) U/L Alkaline Phosphatase 76 (38-126) U/L Serum Total Protein 6.6 (6.3-8.2) g/dL Albumin 3.7 (3.5-5.0) g/dL Urine Color Yellow (Yellow) Urine Appearance Clear (Clear) Urine pH 7.0 (4.6-8.0) Ur Specific [place] 1.015 (1.005-1.030) Urine Protein Negative (Negative) Urine Glucose (UA) Negative (Negative) mg/dL Urine Ketones Negative (Negative) Urine Blood Negative (Negative) Urine Nitrite Negative (Negative) Urine Bilirubin Negative (Negative) Urine Urobilinogen 1.0 A (0.2) mg/dL Ur Leukocyte Esterase Trace A (Negative) U Hyaline Cast (Auto) NONE SEEN (0-2) /LPF Urine Microscopic RBC 0-2 (0-5) /HPF Urine Microscopic WBC 0-2 (0-5) /HPF Ur Epithelial Cells Rare (None Seen) /HPF Urine Bacteria None Seen (None Seen) /HPF Urine Culture Reflexed NO (NO) - Progress Progress: improved, re-examined Progress Note: 07/03/24 22:44 68-year-old is evaluated in the ER for right flank/back pain off and on for the last couple of days with reproducibility on movements in a certain way. Patient does not have any midline tenderness but tenderness right lumbar paraspinal area. No swelling/cellulitis. Has normal white count, chemistries fairly unremarkable except for mildly elevated creatinine of 1.1. Has no UTI. She is given symptomatic treatment for pain, feeling better on reevaluation. CT abdomen pelvis without contrast is negative for any renal/ureteral stone, obstruction, hematoma, no fracture subluxation. Does have some element of constipation. No signs of cauda equina. I believe patient's symptoms are more of a musculoskeletal with lumbar paraspinal muscle spasm/strain, will give short course of muscle relaxants and recommended taking Tylenol along with it and outpatient follow-up. Recommended outpatient follow-up. Discussed signs symptoms of worsening needing return to ER which she seems understanding. Counseled pt/family regarding: lab results, diagnosis, need for follow-up, abhishek pitt Medical Desision Making - Diagnostic Testing Diagnostic test were ordered, analyzed, and reviewed by me: Yes Radiological Interpretation: Reviewed by me, Teleradiologist Report - Risk of complications The pt has a mod risk of morbidity or mortality based on: Need for prescription drug management - Departure Departure Disposition: Home Clinical Impression: Strain of lumbar paraspinal muscle Condition: Stable Critical Care Time: No Referrals: FLAKO PINA NP [Primary Care Provider] - Follow up with PCP 1 day Instructions: Back Muscle Strain Additional Instructions: Take Tylenol as needed for pain. Follow-up with primary care for reevaluation. Return to ER for intractable back pain or if having numbness tingling focal weakness, loss of bowel or bladder control. Prescriptions: Methocarbamol [Robaxin] 500 mg PO Q8HPRN PRN 10 Days #20 tablet PRN Reason: Pain
[2024-07-03 20:59] LABS: Appearance Clear (Clear); Bacteria None Seen /HPF (None Seen); Bilirubin Negative (Negative); Blood Negative (Negative); Epithelial Cells Rare /HPF (None Seen); Glucose, Urine Negative (Negative); Hyaline Casts NONE SEEN /LPF (0-2); Ketones Negative (Negative); Leukocyte Esterase Trace (Negative); Nitrite Negative (Negative); Protein,Urine Dip Negative (Negative); RBC 0-2 /HPF (0-5); Specific Gravity 1.015 (1.005-1.030); WBC 0-2 /HPF (0-5)
[2024-07-03 21:02] LABS: ADD URINE CULTURE? NO (NO)
[2024-07-03 21:32] LABS: ALBUMIN 3.7 g/dL (3.5-5.0); ANION GAP 7.9 MEQ/L (5-15); BILIRUBIN,TOTAL 0.3 mg/dL (0.2-1.3); Calcium 8.9 mg/dL (8.4-10.2); Creatinine 1 1.11 mg/dL (0.52-1.04); EST GLOMERULAR FILTRATION RATE 53.8 ML/MIN; Potassium 3.9 mmol/L (3.5-5.1); Total Protein 6.6 g/dL (6.3-8.2)
[2024-07-03 22:21] VITALS: RESP 19
[2024-07-03 22:50] VITALS: O2SAT 97
[2024-07-03 23:02] VITALS: BP 121/76; PULSE 65
--- NOTE | 2024-07-04 09:08 | XRAY ---
Indication: Right flank/back pain. Multiple contiguous axial images obtained through the abdomen and pelvis without contrast using renal stone protocol. Comparison: None Lung bases clear. Heart not enlarged. No renal calculus or evidence for obstructive uropathy in either system. Stomach is markedly distended with food. Gallbladder contracted without gallstones. Noncontrasted stomach and bowel loops appear nonobstructed. Small descending duodenal diverticulum. Normal appendix. Mild diffuse scattered colonic fecal debris. Left mid kidney demonstrates 1.3 cm cortical cyst. No free fluid/air. Remaining liver, gallbladder, pancreas, spleen, adrenal glands, kidneys, ureters, bladder, and uterus are unremarkable for noncontrast exam. Mild scattered aortoiliac calcifications without AAA. Osseous structures intact with osteopenia and mild degenerative changes throughout the spine. No ventral or inguinal hernias. Impression: 1. Negative renal calculus or evidence for obstructive uropathy. 2. Mild diffuse fecal stasis. 3. Chronic findings including duodenal diverticulum, left renal cyst, arteriosclerotic disease, and chronic bony findings.
== END 2024-07-03 23:00 | disposition home or self-care (01) ==
LOC: ED 19:47
DX: S39.012A Strain of muscle, fascia and tendon of lower back, initial encounter (principal); Z79.899 Other long term (current) drug therapy; Z72.0 Tobacco use
CPT/HCPCS: 36000; 36415; 74176; 80053; 81001; 85025; 96374; 96375; 99284; J2405; J3010